=== PATIENT | male | born 1970 | race Caucasian/White ===

== ENCOUNTER → 2020-02-27 16:41 | Outpatient (CLI) | payer OTHER, SELFPAY ==
[2020-02-27 16:58] LABS: Basophils % 0.3 % (0.1-2.0); Eosinophils # 0.1 K/mm3 (0.0-0.4); Eosinophils % 0.9 % (0.1-12.0); Hematocrit 46.7 % (42.0-52.0); Hemoglobin 16.1 g/dL (14.1-18.0); Lymphocytes # 1.9 K/mm3 (0.7-4.5); Lymphocytes % 26.4 % (10-50); Mean Corpuscular HGB Conc 34.5 g/dL (31.8-35.4); Mean Corpuscular Hemoglobin 30.3 pg (27.0-31.2); Mean Corpuscular Volume 87.8 fl (80-94); Mean Platelet Volume 8.3 fl (7.4-10.4); Monocytes # 0.3 K/mm3 (0.1-1.0); Monocytes % 4.4 % (1.7-9.3); Neutrophils # 4.8 K/mm3 (1.8-7.8); Platelet Count 204 K/mm3 (142-424); Red Blood Count 5.31 M/mm3 (4.60-6.20); Red Cell Distribution Width 13.3 % (11.5-17.5); White Blood Count 7.1 K/mm3 (4.8-10.8)
[2020-02-27 18:07] LABS: Alanine Aminotransferase 24 U/L (12-78); Albumin Level 4.5 g/dl (3.5-5.0); Albumin/Globulin Ratio 1.6 (1.1-1.8); Alkaline Phosphatase 114 U/L (38-126); Anion Gap 14.5 mEq/L (5-15); Aspartate Amino Transferase 29 U/L (17-59); Bilirubin,Total 1.1 mg/dl (0.2-1.3); Blood Urea Nitrogen 15 mg/dl (9-20); Calcium 9.8 mg/dl (8.4-10.2); Carbon Dioxide 27 mmol/L (22.0-30.0); Chloride 100 mmol/L (98-107); Cholesterol 226 mg/dl (140-200); Estimated Glomerular Filt Rate 102 ml/min (>60); GFR (African American) 123 ML/MIN (>60); Globulin 2.8 g/dL (1.3-3.2); Glucose 84 mg/dl (74-100); HDL Cholesterol 57 mg/dl (40-60); Potassium 4.5 mmoL/L (3.5-5.1); Sodium 137 mmol/L (136-145); Total Protein,Serum 7.3 g/dl (6.3-8.2); Triglycerides 150 mg/dl (30-150); VLDL Cholesterol 30 mg/dL (0-40)
[2020-02-27 18:18] LABS: Direct LDL Cholesterol 138.44 mg/dL (100-129)
[2020-02-27 18:38] LABS: Prostate Specific Ag Screen 0.6 ng/ml (0.0-4.0); Thyroid Stimulating Hormone 0.81 uIU/mL (0.465-4.68)
[2020-02-27 21:41] LABS: Hemoglobin A1C 5.7 % (4.0-6.0)
[2020-03-02 18:13] LABS: Testosterone, Total, LC/MS 169.4 ng/dL (264.0-916.0); Testosterone,Free 4.4 pg/mL (7.2-24.0)
== END ==
PROVIDERS: Visit Provider Family Medicine
DX: R53.83 Other fatigue (principal); Z12.5 Encounter for screening for malignant neoplasm of prostate; K57.92 Diverticulitis of intestine, part unspecified, without perforation or abscess without bleeding; R68.82 Decreased libido
CPT/HCPCS: 80053; 80061; 83036; 84402; 84403; 84436; 84443; 85025; G0103

== ENCOUNTER → 2021-09-01 08:04 | Outpatient (CLI) | payer OTHER, SELFPAY | PROVIDERS: Visit Provider Surgery | DX: Z01.812 Encounter for preprocedural laboratory examination (principal); Z11.52 Encounter for screening for COVID-19; Z13.810 Encounter for screening for upper gastrointestinal disorder; R13.10 Dysphagia, unspecified | CPT/HCPCS: C9803; U0003; U0005 ==

== ENCOUNTER 2021-09-02 08:29 | Day surgery (SDC) | payer OTHER, SELFPAY ==
[2021-09-01 08:52] VITALS: BMI 28.5
[2021-09-02 08:45] VITALS: BP 131/79; PULSE 72; RESP 18; TEMP 36.6; O2SAT 98
--- NOTE | 2021-09-02 09:06 | HMH.ANESCL ---
[facility] Anesthesia Checklist - Patient Identification Patient Identification: Arm Band - Structural Data Admitted From: Home Planned Operative Procedure/s: EGD Consent for Planned Operative Procedure(s) Verified: Yes Verified Documents: Surgical Consent, History and Physical - NPO Status Verified Time NPO: 00:00 - Additional verifications Anesthesia Reactions: No - Airway Assessment C-Spine Mobility Assessed: Yes (mp2) TMJ Mobility Assessed: Yes Dentition: Good Dentition - Neurological Assessment Level of Consciousness: Awake, Alert - Anesthesia Plan Anesthesia Risk discussed: Yes Anesthesia Plan: Verified ASA Class: II Anesthesia Type: MAC [facility] History I have reviewed the patient's past medical history: Yes Medical History: Reports:: Asthma, Kidney Stones Denies:: Cancer, Diabetes Mellitus Type 1, Diabetes Mellitus Type 2, Internal Pacemaker, MRSA, Seizures *Have you ever received a pneumonia vaccine?: No *Have you received a flu vaccine this season?: No Anesthesia experience/problems:: nac Other Surgeries: Yes: Colonoscopy. No: Pacemaker Amputation: No - *Social History Last grade of school completed: Advanced degree Smoking Status: Never smoker Alcohol Intake: never Substance Use Type: denies use *Occupational Status:: employed Housing: house Household Members: spouse *Travel in the last 8 weeks: Outside the [facility] Family Hx:: Cancer
[2021-09-02 09:32] VITALS: O2SAT 98
--- NOTE | 2021-09-02 09:46 | P.PCN_ITS ---
- Procedure: Date: 09/02/21 Patient Date of :: 1970 Procedure Performed:: Esophagogastroduodenoscopy with biopsy Indications:: Gastroesophageal reflux Dysphagia Performing Provider:: Clint Clay MD Referring Provider:: Dr. Farias Sedation:: Monitored anesthesia care Procedure:: After informed consent was obtained the patient was taken to the endoscopy suite. Sedation ensued after the patient was transferred to the left lateral decubitus position. Pulse, blood pressure, and oxygen saturation were monitored throughout the procedure. The endoscope was advanced beyond the duodenal bulb. Retroflexion within the gastric lumen was accomplished. The gastroscope was carefully removed and the patient was transferred to recovery in stable co ndition. Please see findings and specimens below for detail. Findings:: Gastroesophageal junction 40 cm Sliding hiatal hernia Moderately tortuous esophagus Proximal gastric body polyp Mild gastritis Lobulated duodenitis Specimens:: Antral biopsy Duodenal bulb biopsy Proximal gastric body polyp Recommendations:: Follow-up pathology Proton pump inhibition Discussion with regard to further evaluation (possible barium swallow, etc.) will be ongoing Complications:: No immediate Estimated blood obtained (mL): 1
[2021-09-02 09:50] VITALS: BP 119/73; PULSE 77; RESP 16; TEMP 36.3; O2SAT 94
[2021-09-02 10:00] VITALS: BP 121/76; PULSE 85; RESP 16; TEMP 36.3; O2SAT 92
[2021-09-02 10:10] VITALS: BP 136/90; PULSE 77; RESP 16; TEMP 36.3; O2SAT 93
[2021-09-02 10:24] VITALS: BP 133/89; PULSE 70; RESP 18; TEMP 36.3; O2SAT 96
== END 2021-09-02 10:24 | disposition home or self-care (01) ==
LOC: OUTP 08:32
PROVIDERS: PCP Family Medicine; Visit Provider Surgery
PROC: 0DJ08ZZ Inspection of Upper Intestinal Tract, Via Natural or Artificial Opening Endoscopic (ICD-10-PCS; CPT 43235; principal; 2021-09-02 09:30)
DX: K22.2 Esophageal obstruction (principal); K44.9 Diaphragmatic hernia without obstruction or gangrene; K31.7 Polyp of stomach and duodenum; K29.60 Other gastritis without bleeding; K29.80 Duodenitis without bleeding; J45.909 Unspecified asthma, uncomplicated; Z87.442 Personal history of urinary calculi; Z80.9 Family history of malignant neoplasm, unspecified
CPT/HCPCS: 43239; J2704

== ENCOUNTER → 2021-09-19 08:05 | Outpatient (CLI) | payer OTHER, SELFPAY ==
--- NOTE | 2021-09-19 08:06 | FL_ITS ---
FINAL REPORT CLINICAL HISTORY: feels like bubble in chest when swallowing; a lot of hiccups and belching for a long time; fluro time: 0:48 skin dose: 36.34 FINDINGS: ESOPHAGRAM HISTORY: Abdominal pain, nausea. PROCEDURE: The patient ingested barium. Effervescent crystals were also administered. Spot and overhead films were obtained. FINDINGS: The esophagus is normal. There is a small to moderate sized hiatal hernia. There is gastroesophageal reflux to the upper third of the esophagus. Peristalsis is normal. IMPRESSION: Sliding-type hiatal hernia. Gastroesophageal reflux. Reviewed, Interpreted and Dictated by Leonides Tran III, MD Transcribed by GORGE Pack Authenticated by Leonides Tran III, MD on 09/19/2021 10:39:[address] [facility]
== END ==
PROVIDERS: PCP Family Medicine; Visit Provider Surgery
DX: K21.9 Gastro-esophageal reflux disease without esophagitis (principal); R13.10 Dysphagia, unspecified
CPT/HCPCS: 74220

== ENCOUNTER 2021-09-23 10:01 | Emergency (ER) | payer OTHER, SELFPAY ==
--- NOTE | 2021-09-23 10:01 | ECG_ITS ---
APPROVED REPORT Exam: Resting ECG HR:75 bpm ECG Measurements Heart Rate 75 AXES SD 154 P 38 QRSd 93 QRS -14 QT 373 T 28 QTc 402 Conclusion SINUS RHYTHM SEPTAL MYOCARDIAL INFARCTION , PROBABLY OLD [40+ ms Q WAVE IN V1/V2] ABNORMAL ECG UNCONFIRMED REPORT Electronically signed by : Shiva Olvera MD 09/24/2021 18:14:04
[2021-09-23 10:07] VITALS: BP 155/100; PULSE 80; RESP 18; TEMP 36.8; O2SAT 97; BMI 29.2
[2021-09-23 10:16] VITALS: BP 155/95
--- NOTE | 2021-09-23 10:17 | CT_ITS ---
FINAL REPORT TECHNIQUE: Thin section axial CT images were performed from the lung apices to the upper abdomen after the administration of IV contrast. 3-D and MIP reconstructions performed. This study was performed with techniques to keep radiation doses as low as reasonably achievable (ALARA). Individualized dose reduction techniques using automated exposure control or adjustment of mA and/or kV according to the patient''s size were employed. CLINICAL HISTORY: SOA, Rt side CP FINDINGS: There is no evidence for pulmonary embolism. The thoracic aorta is patent without evidence of dissection. There is no axillary adenopathy. There is no mediastinal or hilar adenopathy. The heart size is normal. There is no pleural or pericardial effusion. There is mild dependent atelectasis in the lung bases. Incidental note is made of diffuse diverticulosis throughout the colon without evidence of diverticulitis. IMPRESSION: No evidence of pulmonary embolism or aortic dissection. Mild dependent atelectasis in the lung bases. Diverticulosis without evidence of diverticulitis. Reviewed, Interpreted and Dictated by Bear Tidwell MD Transcribed by Leonora Holden Authenticated by Bear Tidwell MD on 09/23/2021 11:50:14 AM [facility]
[2021-09-23 10:27] LABS: Basophils # 0.1 K/mm3 (0-0.2); Basophils % 1.1 % (0.1-2.0); Eosinophils # 0.1 K/mm3 (0.0-0.4); Eosinophils % 1.1 % (0.1-12.0); Hematocrit 50.4 % (42.0-52.0); Hemoglobin 16.3 g/dL (14.1-18.0); Lymphocytes # 1.6 K/mm3 (0.7-4.5); Lymphocytes % 26.2 % (10-50); Mean Corpuscular HGB Conc 32.4 g/dL (31.8-35.4); Mean Corpuscular Volume 92.8 fl (80-94); Mean Platelet Volume 8.6 fl (7.4-10.4); Monocytes # 0.3 K/mm3 (0.1-1.0); Monocytes % 4.8 % (1.7-9.3); Neutrophils # 4.2 K/mm3 (1.8-7.8); Neutrophils % 66.8 % (37.0-80.0); Platelet Count 235 K/mm3 (142-424); Red Blood Count 5.44 M/mm3 (4.60-6.20); Red Cell Distribution Width 13.4 % (11.5-17.5); White Blood Count 6.2 K/mm3 (4.8-10.8)
[2021-09-23 10:30] VITALS: BP 144/95
[2021-09-23 10:33] LABS: Alanine Aminotransferase 51 U/L (12-78); Albumin Level 4.8 g/dl (3.5-5.0); Albumin/Globulin Ratio 1.7 (1.1-1.8); Alkaline Phosphatase 87 U/L (38-126); Anion Gap 9.1 mEq/L (5-15); Aspartate Amino Transferase 47 U/L (17-59); Bilirubin,Total 0.7 mg/dl (0.2-1.3); Blood Urea Nitrogen 14 mg/dl (9-20); Calcium 9.6 mg/dl (8.4-10.2); Carbon Dioxide 30 mmol/L (22.0-30.0); Chloride 102 mmol/L (98-107); Creatinine Clearance Estimated 146 mL/min (50-200); Estimated Glomerular Filt Rate 102 ml/min (>60); GFR (African American) 123 ML/MIN (>60); Globulin 2.9 g/dL (1.3-3.2); Glucose 108 mg/dl (74-100); Potassium 4.1 mmoL/L (3.5-5.1); Sodium 137 mmol/L (136-145); Total Protein,Serum 7.7 g/dl (6.3-8.2)
--- NOTE | 2021-09-23 10:41 | HMH.EDGENADL ---
ED Disposition Clinical Impression: Chest pain Qualifiers: Chest pain type: unspecified Qualified Code(s): R07.9 - Chest pain, unspecified Disposition: Home, Self-Care Condition on Discharge: Good Instructions: DI for Chest Pain Referrals: Yayo Farias MD [Primary Care Provider] - - Critical Care Critical Care Time: No Attestation: On 09/23/21, the high probability of a clinically significant, sudden or life threatening deterioration of the following system(s) required my full and direct attention, intervention and personal management. The time I documented below is in addition to time spent performing reported procedures but includes the following listed in this critical care notation. Medical Decision Making - Medical Records Medical records reviewed: Yes: I reviewed the patient's medical records. - Om[place] Inquiry Pt receiving controlled substance: No Vital Signs: 09/23/21 10:07 09/23/21 10:16 09/23/21 10:30 Temperature 98.2 F Temperature Source Oral Pulse Rate [Left Radial] 80 Respiratory Rate 18 Blood Pressure 155/95 H 144/95 H Blood Pressure [Left Arm] 155/100 H Blood Pressure Mean 116 111 Blood Pressure Mean [Left Arm] 118 Blood Pressure Source [Left Arm] Automatic Cuff Blood Pressure Position [Left Arm] Sitting 02 Sat by Pulse Oximetry 97 Oxygen Delivery Method Room Air 09/23/21 11:30 Temperature Temperature Source Pulse Rate [Left Radial] Respiratory Rate Blood Pressure 141/91 H Blood Pressure [Left Arm] Blood Pressure Mean 113 Blood Pressure Mean [Left Arm] Blood Pressure Source [Left Arm] Blood Pressure Position [Left Arm] 02 Sat by Pulse Oximetry Oxygen Delivery Method - Lab Data Lab results reviewed: Yes: I reviewed the patient's lab results. Lab Results 09/23/21 10:10: WBC 6.2, RBC 5.44, Hgb 16.3, Hct 50.4, MCV 92.8, MCH 30.0, MCHC 32.4, RDW 13.4, Plt Count 235, MPV 8.6, Neut % (Auto) 66.8, Lymph % (Auto) 26.2, [place] % (Auto) 4.8, Eos % (Auto) 1.1, Baso % (Auto) 1.1, Neut # (Auto) 4.2, Lymph # (Auto) 1.6, [place] # (Auto) 0.3, Eos # (Auto) 0.1, Baso # (Auto) 0.1 09/23/21 10:10: Sodium 137, Potassium 4.1, Chloride 102, Carbon Dioxide 30, Anion Gap 9.1, BUN 14, Creatinine 0.80, Estimated Creat Clear 146, Estimated GFR 102, Est GFR ( Amer) 123, Glucose 108 H, Calcium 9.6, Total Bilirubin 0.7, AST 47, ALT 51, Alkaline Phosphatase 87, Troponin I < 0.01, Total Protein 7.7, Albumin 4.8, Globulin 2.9, Albumin/Globulin Ratio 1.7 09/23/21 10:10: Urine Color Yellow, Urine Appearance Clear, Urine pH 6.0, Ur Specific [place] 1.020, Urine Protein Negative, Urine Glucose (UA) Negative, Urine Ketones Negative, Urine Blood Negative, Urine Nitrate Negative, Urine Bilirubin Negative, Urine Urobilinogen 0.2, Ur Leukocyte Esterase Negative Result diagrams: 09/23/21 10:10 09/23/21 10:10 Orders (Tests/Meds): ED MEDICATIONS Generic Name Dose Route Start Last Admin Trade Name Freq PRN Reason Stop Dose Admin Sodium Chloride 10 ml 09/23/21 10:17 Sodium Chloride 0.9% 10ml Flush Syringe IV 10/23/21 10:16 NEEDED PRN Maintain IV Site Discontinued Medications Generic Name Dose Route Start Last Admin Trade Name Freq PRN Reason Stop Dose Admin Iopamidol 70 ml 09/23/21 11:13 09/23/21 11:14 Iopamidol-370 (76%);100ml Bottle IV 09/23/21 11:14 70 ml ONCE ONE Administration Sodium Chloride 50 ml 09/23/21 11:13 09/23/21 11:13 0.9 % Sodium Chloride 50 Ml Vial IV 09/23/21 11:14 50 ml ONCE ONE Administration Sodium Chloride 10 ml 09/23/21 11:13 09/23/21 11:13 Sodium Chloride 0.9% 10ml Syr (Rad Only) IV 09/23/21 11:14 10 ml ONCE ONE Administration ORDERS Category Date Time Status Troponin I Q3H Lab 09/23/21 13:30 Ordered Troponin I Q3H Lab 09/23/21 16:30 Ordered UA [Urinalysis and Microscopic] Stat Lab 09/23/21 10:10 Results Medical Decision Narrative: 51-year-old male presented to emergency departme
[2021-09-23 10:51] LABS: Troponin I < 0.01 ng/ml (0.00-0.034)
[2021-09-23 11:30] VITALS: BP 141/91
[2021-09-23 12:00] VITALS: BP 143/99; PULSE 84; RESP 21; O2SAT 96
[2021-09-23 13:15] LABS: Microscopic, Urine URINE MICROSCOPIC (MICROSCOPIC)
[2021-09-23 13:25] LABS: Appearance,Urine CLEAR (Clear); Bilirubin,Urine Negative (Negative); Blood, Urine Negative (Negative); Color,Urine YELLOW (Yellow); Glucose,Urine (UA) Negative (Negative); Ketones,Urine Negative (Negative); Leukocyte Esterase,Urine Negative (Negative); Nitrate,Urine Negative (Negative); Protein,Urine Negative (Negative); Urobilinogen,Urine 0.2 EU/dl (0.2)
[2021-09-23 13:29] VITALS: BP 143/99; PULSE 84; RESP 21; TEMP 36.8; O2SAT 96
[2021-09-23 13:44] LABS: Bacteria,Urine Trace /lpf; Squamous Epithelial Cell,Urine Occasional #/hpf (0-5)
== END 2021-09-23 13:30 | disposition home or self-care (01) ==
PROVIDERS: Emergency Provider Emergency Medicine; PCP Family Medicine
DX: R07.9 Chest pain, unspecified (principal); B34.9 Viral infection, unspecified; J45.909 Unspecified asthma, uncomplicated
CPT/HCPCS: 71275; 80053; 81001; 84484; 85025; 93005; 99284; Q9967